=== PATIENT | female | born 1975 | race Caucasian/White ===

== ENCOUNTER → 2019-05-26 | Outpatient (REF) | payer BC ==
[~2019-05-26] MED LIST: LOR5/325 PO; NO RTN MEDS
== END ==
PROVIDERS: ATTEND Family Medicine
DX: R60.0 Localized edema (principal)

== ENCOUNTER → 2019-05-26 | Outpatient (CLI) | payer BC ==
--- NOTE | 2019-05-26 18:49 | RADIOLOGY IMAGING REPORT ---
FACILITY: [facility] [place] PATIENT NAME: Shari Escudero : 1975 MR: [id number] V: [id number] EXAM DATE: ORDERING PHYSICIAN: BLANCA PETERSON TECHNOLOGIST: Location[place] [facility] [place] Patient: Shari Escudero : 1975 Visit/Account:[id number] Date of Sevice: 05/26/2019 VENOUS DOPP LOWER BILAT EXTREM ADDITIONAL PERTINENT HISTORY: Bilateral swelling. COMPARISON STUDIES: None. FINDINGS: Grayscale compression, duplex and color Doppler interrogation of the bilateral lower extremity deep v eins from common femoral vein to proximal calf was performed. The greater saphenous vein in the ipsil ateral proximal thigh was evaluated using similar technique. Bilateral lower extremity: Common femoral vein: Negative. Femoral vein: Negative. Deep femoral vein: Negative. Popliteal vein: Negative. Visualized deep calf veins Negative. Greater saphenous vein in the proximal thigh: Negative. Popliteal fossa: negative Surrounding soft tissues: Benign-appearing but mildly enlarged lymph nodes within the groin bilateral ly likely reactive. IMPRESSION: 1. No evidence of deep venous thrombosis involving the bilateral lower extremity. Report Dictated By: Teodoro Sierra MD at 05/26/2019 6:40 PM Report E-Signed By: Teodoro Sierra MD at 05/26/2019 6:41 PM WSN:[id number]
== END ==
LOC: US 17:33
PROVIDERS: ATTEND Family Medicine
DX: R60.0 Localized edema (principal)
CPT/HCPCS: 93970

== ENCOUNTER → 2019-05-27 | Outpatient (REF) | payer BC ==
[2019-05-27 16:40] LABS: PLATELET COUNT, AUTOMATED 253 K/uL (150-450)
[2019-05-27 19:12] LABS: PLATELET COUNT, AUTOMATED 252 K/uL (150-450)
== END ==
PROVIDERS: ATTEND Nurse Practitioner Family
DX: R60.0 Localized edema (principal); R60.9 Edema, unspecified
CPT/HCPCS: 82040; 82247; 82310; 82374; 82435; 82565; 82947; 83880; 84075; 84132; 84155; 84295; 84450; 84460; 84484; 84520; 84702; 85025

== ENCOUNTER → 2019-06-03 | Outpatient (REF) | payer BC ==
[2019-06-03 19:43] LABS: PLATELET COUNT, AUTOMATED 301 K/uL (150-450)
== END ==
PROVIDERS: ATTEND Nurse Practitioner Family
DX: R00.0 Tachycardia, unspecified (principal)
CPT/HCPCS: 82040; 82247; 82310; 82374; 82435; 82565; 82947; 84075; 84132; 84155; 84295; 84436; 84443; 84450; 84460; 84480; 84520; 85025